=== PATIENT | male | born 1990 | race Caucasian/White ===

== ENCOUNTER 2025-01-07 13:03 | Emergency (ER) | payer OTHER ==
[~2025-01-07] VITALS: Ht 177.8 cm; Wt 68.0 kg
[~2025-01-07 13:03] MED LIST: DONNATAL1 TAB PO; ZITHROMAX Z PA250 MG PO; ZOFRAN ODT8 MG PO; ZOFRAN4 MG PO
[2025-01-07 13:35] LABS: BASO # 0.1 10*3/uL (0.0-0.1); BASO % 1.6 % (0.0-1.0); EOS # 0.2 10*3/uL (0.0-0.4); EOS % 2.7 % (1.0-4.0); MEAN CELL VOLUME 88.8 fl (80.0-94.0); MEAN CORPUSCULAR HGB 29.4 pg (27.0-31.0); MEAN PLATELET VOLUME 9.8 fl (9.6-12.3); MONO # 0.5 10*3/uL (0.1-1.0); MONO % 7.2 % (3.0-9.0); NEUT # 3.1 10*3/uL (2.3-7.9); NEUT % 48.5 % (47.0-73.0); NUCLEATED RED BLOOD CELL 0.0 % (0.0-0.0); NUCLEATED RED BLOOD CELL 0.0 10*3/uL (0.0-0.0); PLATELET COUNT AUTOMATED 284 10*3/uL (130-400); RED CELL DISTRI WIDTH 13.2 % (0-14.5)
[2025-01-07 13:57] LABS: BUN 15 mg/dl (9-23); CPK 100 U/L (34-171); ETHYL ALCOHOL 3.7 mg/dl (<3); SGPT/ALT 48 U/L (5-49)
[2025-01-07 14:20] LABS: BILIRUBIN Negative (Negative); BLOOD Negative (Negative); CLARITY Clear (Clear); COLOR Yellow (Yellow); KETONE Trace (Negative); LEUKO ESTERASE Negative (Negative); NITRITE Negative (Negative); PH 6.0 (4.5-8.0); SPECIFIC GRAVITY 1.025 (1.001-1.030); UROBILINOGEN 1.0 E.U./dl (0.0-1.0)
[2025-01-07 14:27] LABS: URINE AMPHETAMINES Negative (1000ng/ml); URINE BARBITURATES Negative (200ng/ml); URINE BENZODIAZEPINES Negative (200ng/ml); URINE CANNABINOIDS (THC) Negative (50ng/ml); URINE COCAINE Negative (300ng/ml); URINE METHADONE Negative (300ng/ml); URINE OPIATES Negative (300ng/ml); URINE PHENCYCLIDINE Negative (25ng/ml)
[2025-01-07 14:33] LABS: BACTERIA TRACE; EPITHELIAL CELLS 0-2; MUCOUS TRACE; RBC 0-2 rbc/hpf (0-2); WBC 0-2 wbc/hpf (0-5)
[2025-01-07] MEDS ORDERED: LEXAPRO10 MG PO (14:48)
== END 2025-01-07 15:04 | disposition home or self-care (01) ==
LOC: ED 13:03
PROVIDERS: Internal Medicine
DX: F43.21 Adjustment disorder with depressed mood (principal)